=== PATIENT | female | born 1945 | race Caucasian/White ===

== ENCOUNTER 2016-08-22 17:10 | Inpatient (IN) | payer MEDICARE, BC ==
[~2016-08-22] VITALS: Ht 167.6 cm; Wt 85.7 kg
[2016-08-22 18:32] LABS: HEMOGLOBIN 11.9 gm/dl (12.3-15.3); RED BLOOD COUNT 4.16 M/UL (4.00-5.10); WHITE BLOOD COUNT 12.3 K/UL (4.5-11.0)
[2016-08-22 18:54] LABS: BUN/CREATININE RATIO 23 (0-10)
[2016-08-23 05:06] LABS: HEMOGLOBIN 10.8 gm/dl (12.3-15.3); RED BLOOD COUNT 3.81 M/UL (4.00-5.10); WHITE BLOOD COUNT 11.3 K/UL (4.5-11.0)
[2016-08-23 05:35] LABS: BUN/CREATININE RATIO 28 (0-10)
[2016-08-23] MEDS ORDERED: NOVOLIN 70100 UNIT/1 SQ ×2 (10:36→10:47)
[2016-08-23] MEDS ORDERED: LASIX20 MG PO (10:36)
[2016-08-23] MEDS ORDERED: STOOL SOFTENER100 M1 PO (10:43)
[2016-08-23] MEDS ORDERED: LOSARTAN-HCTZ1 EAC1 PO (10:44)
[2016-08-23] MEDS ORDERED: LINZESS290 MCG PO (10:44)
[2016-08-23] MEDS ORDERED: POTASSIUM CHLO10 MEQ PO (10:46)
[2016-08-23] MEDS ORDERED: ZANTAC 150 MG150 MG PO (10:46)
[2016-08-24 01:30] LABS: HEMOGLOBIN 10.1 gm/dl (12.3-15.3); RED BLOOD COUNT 3.57 M/UL (4.00-5.10)
[2016-08-24 01:31] LABS: WHITE BLOOD COUNT 7.2 K/UL (4.5-11.0)
[2016-08-24 01:46] LABS: BUN/CREATININE RATIO 22 (0-10)
[2016-08-24 18:37] LABS: HEMOGLOBIN 9.9 gm/dl (12.3-15.3); RED BLOOD COUNT 3.5 M/UL (4.00-5.10); WHITE BLOOD COUNT 7.4 K/UL (4.5-11.0)
[2016-08-24 18:54] LABS: BUN/CREATININE RATIO 18 (0-10)
[2016-08-25 04:47] LABS: HEMOGLOBIN 9.6 gm/dl (12.3-15.3); RED BLOOD COUNT 3.45 M/UL (4.00-5.10)
[2016-08-25 05:08] LABS: BUN/CREATININE RATIO 18 (0-10)
--- NOTE | 2016-08-25 18:12 | NUR ---
PATIENT HAS NO IV ACCESS AT THIS TIME. MULTIPLE ATTEMPTS BY NURSING STAFF. NOTIFIED.
[2016-08-26] MEDS ORDERED: ASPIR 8181 MG PO (11:15)
[2016-08-26] MEDS ORDERED: LIPITOR TAB 2020 MG PO ×2 (11:15→11:16)
[2016-08-26] MEDS ORDERED: LOPRESSOR 25 MG25 MG PO (11:16)
[2016-08-26] MEDS ORDERED: COZAAR25 MG PO (11:17)
[2016-08-26] MEDS ORDERED: BRILINTA90 MG PO (11:18)
[2016-08-26] MEDS ORDERED: SIMETHICON40 MG/0.6 PO (11:19)
[2016-08-26] MEDS ORDERED: CIPROFLOXA500 MG/5 M PO (11:21)
[2016-08-26] MEDS ORDERED: FLAGYL500 MG PO (11:22)
[2016-08-26] MEDS ORDERED: CIPRO500 MG PO (11:50)
[2016-08-26] MEDS ORDERED: MYLICON CHEWABL80 MG PO (11:52)
[2016-08-31] MEDS ORDERED: INFLECTRA IV (17:13)
[2016-09-02] MEDS ORDERED: K-DUR TAB 10 M10 MEQ PO (10:34)
[2016-09-02] MEDS ORDERED: LASIX TAB 20 MG20 MG PO (10:34)
[2016-09-02] MEDS ORDERED: NITROSTAT0.4 MG SL (10:35)
[2016-09-02] MEDS ORDERED: PROTONIX 40 MG40 M1 PO (10:36)
[2016-09-14] MEDS ORDERED: FLAGYL500 MG PO (17:48)
== END 2016-08-26 10:40 | disposition home or self-care (01) | DRG 247 ==
LOC: ER1 17:10 → ZEROF 21:20 → PROG CARE 21:20
PROVIDERS: Family Medicine; Internal Medicine; Physician Assistant; ADMIT Internal Medicine
DX: I21.4 Non-ST elevation (NSTEMI) myocardial infarction (principal); K57.32 Diverticulitis of large intestine without perforation or abscess without bleeding; K56.7 Ileus, unspecified; E87.6 Hypokalemia; R11.14 Bilious vomiting; I25.119 Atherosclerotic heart disease of native coronary artery with unspecified angina pectoris; D64.9 Anemia, unspecified; E11.9 Type 2 diabetes mellitus without complications; Z79.4 Long term (current) use of insulin; I10 Essential (primary) hypertension; K21.9 Gastro-esophageal reflux disease without esophagitis; K58.9 Irritable bowel syndrome, unspecified; K59.09 Other constipation; R10.32 Left lower quadrant pain; R50.9 Fever, unspecified; E66.9 Obesity, unspecified; E78.5 Hyperlipidemia, unspecified; Z82.49 Family history of ischemic heart disease and other diseases of the circulatory system; Z82.3 Family history of stroke; Z88.2 Allergy status to sulfonamides; Z79.899 Other long term (current) drug therapy
CPT/HCPCS: ECHO; 36415; 71020; 74000; 80048; 80053; 80061; 81001; 82550; 82553; 82962; 83036; 83605; 83690; 83735; 83874; 83880; 84132; 84484; 85025; 85027; 85347; 85730; 87040; 87081; 87086; 87880; 93005; 93306; 96365; 96367; 96375; 96376; 99291; C1725; C1769; C1874; C1887; C1894; C9600; C9601; J1644; J1817; J1956; J2250; J2270; J2405; J2550; J3010; J7030; J7050; Q0163; Q9963

== ENCOUNTER → 2020-03-05 | Outpatient (CLI) | payer MEDICARE, BC ==
[~2020-03-05] VITALS: Ht 167.6 cm; Wt 82.6 kg
[~2020-03-05] MED LIST: ALL DAY ALLERGY10 M2 PO; ANUSOL-HC CREAM30 GM PR; ASPIR 8181 MG PO; ASPIRIN325 MG PO; ATORVASTATIN CA20 MG PO; ATORVASTATIN CA40 MG PO; AUGMENTIN 875-1 EACH PO; BRILINTA90 MG PO; CALCIUM 600 +1 EA10 PO; CEFUROXIME500 MG PO; CIPRO500 MG PO; CIPROFLOXA500 MG/5 M PO; COZAAR25 MG PO; DEXILANT60 MG PO; FARXIGA10 MG PO; FLAGYL500 MG PO; FLONASE 0.05% N16 GM; IBUPROFEN800 MG PO; INFLECTRA IV; K-DUR TAB 10 M10 MEQ PO; K-TAB ER10 MEQ PO; KLOR-CON M1010 MEQ PO; LASIX TAB 20 MG20 MG PO; LASIX20 MG PO; LEVEMIR100 UNIT/1 SQ; LINZESS290 MCG PO; LIPITOR TAB 2020 MG PO; LOPRESSOR 25 MG25 MG PO; LOSARTAN-HCTZ1 EAC1 PO; LOVASTATIN10 MG PO; MACROBID 100 M100 M1 PO; MECLIZINE HCL25 MG PO; MICARDIS80 MG PO; MYLICON CHEWABL80 MG PO; NITROSTAT0.4 MG SL; NORVASC 5 MG TAB5 MG PO; NOVOLIN 70100 UNIT/1 SQ; OMEPRAZOLE40 MG PO; OXYCODONE HCL5 MG PO; OZEMPIC1 MG/0.75 SQ; PLAVIX 75 MG TA75 MG PO; POTASSIUM CHLO10 MEQ PO; PROTONIX 40 MG40 M1 PO; PROVENTIL HFA6.7 GM INH; SIMETHICON40 MG/0.6 PO; STOOL SOFTENER100 M1 PO; TELMISARTAN-HC1 EAC2 PO; TELMISARTAN-HC1 EACH PO; TESSALON PERLE100 MG PO; VITAMIN D21250 MCG PO; XULTOPHY 100 UNI3 ML SQ; ZANTAC 150 MG150 MG PO
== END ==
LOC: OPSV 09:00
DX: L40.50 Arthropathic psoriasis, unspecified (principal)
CPT/HCPCS: 96372; J3357

== ENCOUNTER 2020-04-12 18:13 | Emergency (ER) | payer MEDICARE, BC ==
[2020-04-12 19:24] LABS: HEMOGLOBIN 13.5 gm/dl (12.3-15.3); RED BLOOD COUNT 4.78 M/UL (4.00-5.10); WHITE BLOOD COUNT 6.8 K/UL (4.5-11.0)
[2020-04-12 19:39] LABS: BUN/CREATININE RATIO 32 (0-10)
== END 2020-04-12 22:10 | disposition home or self-care (01) ==
LOC: ER1 18:13
PROVIDERS: Emergency Medicine
DX: U07.1 COVID-19 (principal); J12.82 Pneumonia due to coronavirus disease 2019; I10 Essential (primary) hypertension; E11.9 Type 2 diabetes mellitus without complications; Z88.2 Allergy status to sulfonamides
CPT/HCPCS: 36415; 71045; 80053; 82550; 82553; 83874; 83880; 84484; 85025; 93005; 99284; M0239

== ENCOUNTER → 2020-05-28 | Outpatient (CLI) | payer MEDICARE, BC ==
[~2020-05-28] VITALS: Ht 167.6 cm; Wt 82.6 kg
== END ==
LOC: OPSV 09:40
DX: L40.50 Arthropathic psoriasis, unspecified (principal)
CPT/HCPCS: 96372; J3357

== ENCOUNTER → 2020-06-04 | Outpatient (CLI) | payer MEDICARE, BC | LOC: RAD 08:00 | DX: R12 Heartburn (principal); R10.10 Upper abdominal pain, unspecified; Z98.890 Other specified postprocedural states; K44.9 Diaphragmatic hernia without obstruction or gangrene | CPT/HCPCS: 74246 ==

== ENCOUNTER → 2020-06-24 | Outpatient (CLI) | payer MEDICARE, BC | LOC: HEART 5 15:30 | DX: I25.10 Atherosclerotic heart disease of native coronary artery without angina pectoris (principal); I50.9 Heart failure, unspecified; R06.02 Shortness of breath; I08.3 Combined rheumatic disorders of mitral, aortic and tricuspid valves | CPT/HCPCS: 93306 ==

== ENCOUNTER → 2020-10-07 | Outpatient (CLI) | payer MEDICARE, BC ==
[~2020-10-07] VITALS: Ht 167.6 cm; Wt 82.6 kg
== END ==
LOC: OPSV 10:49
DX: L40.50 Arthropathic psoriasis, unspecified (principal)
CPT/HCPCS: 96372; J3357

== ENCOUNTER 2021-01-30 16:52 | Observation (INO) | payer MEDICARE, BC ==
[~2021-01-30] VITALS: Ht 167.6 cm; Wt 81.6 kg
[2021-01-30 17:20] LABS: HEMOGLOBIN 13.5 gm/dl (12.3-15.3); RED BLOOD COUNT 4.63 M/UL (4.00-5.10)
[2021-01-30 17:50] LABS: BUN/CREATININE RATIO 17 (0-10)
[2021-01-30] MEDS ORDERED: CARVEDILOL6.25 MG PO (23:05)
[2021-01-30] MEDS ORDERED: PREGABALIN75 MG PO (23:10)
[2021-01-30] MEDS ORDERED: RANOLAZINE ER500 MG PO (23:11)
[2021-01-30] MEDS ORDERED: TELMISARTAN80 MG PO (23:11)
== END 2021-01-31 12:17 | disposition home or self-care (01) ==
LOC: ER1 16:52 → CDU 18:58 → MED SURG 4 20:35
PROVIDERS: Family Medicine; ADMIT Internal Medicine Infectious Disease
DX: R07.89 Other chest pain (principal); I10 Essential (primary) hypertension; R55 Syncope and collapse; E11.9 Type 2 diabetes mellitus without complications; I25.10 Atherosclerotic heart disease of native coronary artery without angina pectoris; K21.9 Gastro-esophageal reflux disease without esophagitis; Z20.822 Contact with and (suspected) exposure to COVID-19; Z79.82 Long term (current) use of aspirin; Z79.4 Long term (current) use of insulin; Z88.2 Allergy status to sulfonamides
CPT/HCPCS: 36415; 70450; 71045; 80053; 82550; 82553; 82962; 83036; 83735; 83874; 84443; 84484; 85025; 93005; G0378; U0002

== ENCOUNTER → 2021-02-02 | Outpatient (CLI) | payer MEDICARE, BC ==
[~2021-02-02] MED LIST changes: +CARVEDILOL6.25 MG PO; +PREGABALIN75 MG PO; +RANOLAZINE ER500 MG PO; +TELMISARTAN80 MG PO
== END ==
LOC: HEART 5 07:55
DX: I20.9 Angina pectoris, unspecified (principal); R00.2 Palpitations; R00.0 Tachycardia, unspecified; Q21.9 Congenital malformation of cardiac septum, unspecified
CPT/HCPCS: 78452; A9502; J2785

== ENCOUNTER → 2021-03-09 | Outpatient (CLI) | payer MEDICARE, BC ==
[~2021-03-09] MED LIST changes: +ASPIRIN81 MG PO; +DULOXETINE HCL30 MG PO; +LORATADINE10 MG PO; +RANEXA1000 MG PO; +SINGULAIR10 MG PO
[2021-03-09 09:59] LABS: HEMOGLOBIN 12.8 gm/dl (12.3-15.3); RED BLOOD COUNT 4.42 M/UL (4.00-5.10); WHITE BLOOD COUNT 8.5 K/UL (4.5-11.0)
[2021-03-10 07:10] LABS: CALCIUM, SERUM 9.7 mg/dL (8.7-10.3); CREATININE, SERUM 0.67 mg/dL (0.57-1.00); POTASSIUM, SERUM 4.1 mmol/L (3.5-5.2)
== END ==
LOC: LAB 09:08
PROVIDERS: Internal Medicine Cardiovascular Disease
DX: I10 Essential (primary) hypertension (principal); R94.39 Abnormal result of other cardiovascular function study; I20.9 Angina pectoris, unspecified
CPT/HCPCS: 36415; 80048; 85025

== ENCOUNTER 2021-03-10 09:25 | Outpatient (CLI) | payer MEDICARE, BC ==
[~2021-03-10] VITALS: Ht 167.6 cm; Wt 81.6 kg
[~2021-03-10 09:25] MED LIST changes: -ASPIRIN81 MG PO; -CARVEDILOL6.25 MG PO; -DULOXETINE HCL30 MG PO; -LORATADINE10 MG PO; -RANEXA1000 MG PO; -SINGULAIR10 MG PO
[2021-03-10] MEDS ORDERED: ASPIRIN81 MG PO (10:06)
[2021-03-10] MEDS ORDERED: NITROSTAT0.4 MG SL (10:12)
[2021-03-10] MEDS ORDERED: LORATADINE10 MG PO (10:13)
[2021-03-10] MEDS ORDERED: FARXIGA10 MG PO (10:15)
[2021-03-10] MEDS ORDERED: DULOXETINE HCL30 MG PO (10:15)
[2021-03-10] MEDS ORDERED: RANEXA1000 MG PO (10:17)
[2021-03-10] MEDS ORDERED: SINGULAIR10 MG PO (10:18)
[2021-03-10] MEDS ORDERED: CARVEDILOL6.25 MG PO (23:05)
[2021-03-10 23:47] LABS: BUN/CREATININE RATIO 19 (0-10)
[2021-03-11 03:36] LABS: HEMOGLOBIN 12.7 gm/dl (12.3-15.3); RED BLOOD COUNT 4.46 M/UL (4.00-5.10); WHITE BLOOD COUNT 7.4 K/UL (4.5-11.0)
[2021-03-11 04:13] LABS: BUN/CREATININE RATIO 18 (0-10)
== END 2021-03-11 13:35 | disposition home or self-care (01) ==
LOC: CATH 09:25 → PROG CARE 17:21 → CATH 03-11 13:35
PROVIDERS: Internal Medicine Interventional Cardiology
DX: T82.855A Stenosis of coronary artery stent, initial encounter (principal); I25.118 Atherosclerotic heart disease of native coronary artery with other forms of angina pectoris; I10 Essential (primary) hypertension; E78.5 Hyperlipidemia, unspecified; E11.9 Type 2 diabetes mellitus without complications; M06.9 Rheumatoid arthritis, unspecified; I25.2 Old myocardial infarction; Z79.4 Long term (current) use of insulin; Z95.5 Presence of coronary angioplasty implant and graft
CPT/HCPCS: 36415; 80048; 82550; 82553; 82962; 84484; 85027; 85347; 92920; 93005; 99152; 99153; C1725; C1769; C1887; C1894; J1170; J1644; J2250; J3010; J3475; J7030; Q9967

== ENCOUNTER 2021-04-30 00:13 | Observation (INO) | payer MEDICARE, BC ==
[~2021-04-30] VITALS: Ht 167.6 cm; Wt 82.6 kg
[~2021-04-30 00:13] MED LIST changes: +ASPIRIN81 MG PO; +CARVEDILOL6.25 MG PO; -LEVEMIR100 UNIT/1 SQ; +SINGULAIR10 MG PO
[2021-04-30] MEDS ORDERED: LEVEMIR100 UNIT/1 SQ (00:19)
[2021-04-30 01:18] LABS: HEMOGLOBIN 12.1 gm/dl (12.3-15.3); RED BLOOD COUNT 4.29 M/UL (4.00-5.10); WHITE BLOOD COUNT 8.1 K/UL (4.5-11.0)
[2021-04-30 01:39] LABS: BUN/CREATININE RATIO 19 (0-10)
[2021-04-30] MEDS ORDERED: COZAAR 50MG TAB50 MG PO (04:41)
[2021-04-30] MEDS ORDERED: GLUCOPHAGE 500500 MG PO (04:41)
--- NOTE | 2021-04-30 10:09 | NUR ---
PATIENT REPORTS THAT SHE IS HAVING LEFT SIDED CHEST PAIN AT THIS TIME. PROVIDER AWARE WITH NEW ORDERS GIVEN.
[2021-04-30] MEDS ORDERED: ALLERGY25 MG PO (10:13)
[2021-04-30] MEDS ORDERED: CYMBALTA60 MG PO (10:15)
[2021-04-30] MEDS ORDERED: RANEXA500 MG PO (10:17)
[2021-04-30] MEDS ORDERED: CRESTOR5 MG PO (18:36)
[2021-04-30] MEDS ORDERED: PLAVIX 75 MG TA75 MG PO (18:40)
[2021-04-30] MEDS ORDERED: SENNA8.6 MG PO (18:50)
[2021-04-30] MEDS ORDERED: RYBELSUS3 MG PO (18:53)
[2021-05-01 03:53] LABS: RED BLOOD COUNT 4.26 M/UL (4.00-5.10); WHITE BLOOD COUNT 6.9 K/UL (4.5-11.0)
[2021-05-01 04:11] LABS: BUN/CREATININE RATIO 16 (0-10)
[2021-05-01] MEDS ORDERED: COZAAR 50MG TAB50 MG PO (12:23)
[2021-05-01] MEDS ORDERED: OMEPRAZOLE40 MG PO (12:23)
[2021-05-01] MEDS ORDERED: MAALOX PLUS 3030 ML PO (12:23)
[2021-05-01] MEDS ORDERED: AMLODIPINE BESYL5 MG PO (12:23)
[2021-05-01] MEDS ORDERED: HYDRALAZINE HCL25 MG PO (12:23)
[2021-05-01] MEDS ORDERED: HYDROCHLOROTHIA25 MG PO (12:23)
== END 2021-05-01 15:36 | disposition home or self-care (01) ==
LOC: ER1 00:13 → MED SURG 4 02:46 → CDU 02:46 → MED SURG 4 04:36
PROVIDERS: Emergency Medicine; ADMIT Internal Medicine
DX: I16.9 Hypertensive crisis, unspecified (principal); Z20.822 Contact with and (suspected) exposure to COVID-19; I25.10 Atherosclerotic heart disease of native coronary artery without angina pectoris; R00.1 Bradycardia, unspecified; I11.0 Hypertensive heart disease with heart failure; I50.32 Chronic diastolic (congestive) heart failure; E87.6 Hypokalemia; E78.5 Hyperlipidemia, unspecified; E11.43 Type 2 diabetes mellitus with diabetic autonomic (poly)neuropathy; K31.84 Gastroparesis; Z79.02 Long term (current) use of antithrombotics/antiplatelets; Z79.84 Long term (current) use of oral hypoglycemic drugs; Z79.899 Other long term (current) drug therapy; Z86.73 Personal history of transient ischemic attack (TIA), and cerebral infarction without residual deficits; Z95.5 Presence of coronary angioplasty implant and graft; Z88.2 Allergy status to sulfonamides; Z88.8 Allergy status to other drugs, medicaments and biological substances
CPT/HCPCS: 36415; 70450; 71045; 80048; 80053; 81001; 82550; 82553; 82962; 83735; 83874; 84132; 84484; 85025; 93005; 96374; 96375; 99285; C9113; J0360; J3480; U0002